=== PATIENT | female | born 1945 | race Caucasian/White ===

== ENCOUNTER 2018-12-03 17:27 | Emergency (ER) | payer MEDICARE, OTHER ==
[~2018-12-03] VITALS: Ht 160 cm; Wt 82.6 kg
--- NOTE | 2018-12-03 17:29 | NUR ---
PT A/OX4, BIB [facility], C/O L SHOULDER PAIN S/P GLF. PARAMEDICS REPORT PT WAS CHANGING A LIGHTBULB WHEN SHE FELL ON HER L SHOULDER. PT DENIES HEAD INJURY/LOC. BUE PMSC NORMAL, INTACT, CAP REFILL < 3 SECS. VS WNL. PT DENIES C/P, SOB, N/V/D, DIZZINESS, HEADACHE.
[2018-12-03] MEDS ORDERED: LEVO100T10 PO (17:48)
[2018-12-03] MEDS ORDERED: ATOR40TA PO (17:48)
[2018-12-03] MEDS ORDERED: SITA50TA PO (17:48)
[2018-12-03] MEDS ORDERED: BENA1TAB18 PO (17:48)
[2018-12-03] MEDS ORDERED: AMLO2.5T4 PO (17:48)
[2018-12-03] MEDS ORDERED: GLIM2TAB2 PO (17:48)
[2018-12-03] MEDS ORDERED: METF-440 PO (17:48)
--- NOTE | 2018-12-03 18:05 | NUR ---
JOSE E LUGO AT BEDSIDE FOR MSE.
[2018-12-03] MEDS ORDERED: diphenhydrAMINE 50 MG/1 ML VIAL ONE (18:12)
[2018-12-03] MEDS ORDERED: HYDROMORPHONE 1 MG/1 ML DISP.SYRIN ONE (18:13)
[2018-12-03] MEDS ORDERED: HYDROMORPHONE 1 MG/1 ML DISP.SYRIN IM ONE (18:15)
[2018-12-03] MEDS ORDERED: diphenhydrAMINE 50 MG/1 ML VIAL IM ONE (18:15)
--- NOTE | 2018-12-03 18:27 | NUR ---
PT TAKEN TO RADIOLOGY.
--- NOTE | 2018-12-03 18:50 | NUR ---
PT BACK IN ER FROM RADIOLOGY.
--- NOTE | 2018-12-03 19:02 | NUR ---
SHIFT REPORT GIVEN TO TOM Burciaga RN.
--- NOTE | 2018-12-03 19:10 | NUR ---
Got patient up, and assisted patient to bathroom.
--- NOTE | 2018-12-03 20:14 | NUR ---
Patient discharged to home in stable conditon. Written and verbal after care instructions given. Patient verbalizes understanding of instructions. Patient ambulated with stable gait.
[2018-12-03 20:17] VITALS: BP 132/76
== END 2018-12-03 20:17 | disposition home or self-care (01) ==
LOC: ER 17:27
DX: S49.92XA Unspecified injury of left shoulder and upper arm, initial encounter (principal); S09.90XA Unspecified injury of head, initial encounter; S39.91XA Unspecified injury of abdomen, initial encounter; E78.5 Hyperlipidemia, unspecified; E11.9 Type 2 diabetes mellitus without complications; E03.9 Hypothyroidism, unspecified; Z79.899 Other long term (current) drug therapy; W18.30XA Fall on same level, unspecified, initial encounter; Y93.89 Activity, other specified; Y92.89 Other specified places as the place of occurrence of the external cause; Y99.8 Other external cause status
CPT/HCPCS: 29105; 70450; 72125; 73030; 74176; 96372 ×2; 99284; J1170; J1200; A4663